=== PATIENT | female | born 1955 | race Caucasian/White ===

== ENCOUNTER 2017-01-16 11:09 | Inpatient (IN) | payer OTHER ==
[~2017-01-16] VITALS: Ht 170.2 cm; Wt 166.7 kg
[2017-01-16 12:35] LABS: EOSINOPHIL (%) 0.6 % (0-5); HEMATOCRIT 42.8 % (36.0-46.0); IMMATURE GRANULOCYTE (%) 0.8 % (0.0-0.7); INSTRUMENT ABS NEUTROPHIL CT 3.1 K/uL; MCH 24.4 PG (29.0-34.0); MCHC 30.6 G/DL (30.0-36.0); MCV 79.7 FL (83-99); MEAN PLAT.VOLUME 10.8 uM^3 (9.5-12.4); MONOCYTE (%) 11.6 % (3-12); MONOCYTE COUNT 0.6 K/uL (0-0.8); NEUTROPHIL (%) 65.7 % (45-76); NEUTROPHIL COUNT 3.1 K/uL (1.8-6.4); PLATELET COUNT 214 K/uL (156-360); RBC DIS.WIDTH-CV 14.8 % (11.8-14.6); RBC DIS.WIDTH-SD 42.5 % (39-53); RED BLOOD COUNT 5.37 M/uL (3.80-5.20); WHITE BLOOD COUNT 4.7 K/uL (4.1-10.2)
[2017-01-16 12:44] LABS: CHLORIDE 100 mEq/L (99-109); INTER. NORMALIZED RATIO 1.2; POTASSIUM 4.3 mEq/L (3.7-5.4); PROTHROMBIN TIME 11.8 (9.2-11.2); PTT 30.3 (25-32); SODIUM 137 mEq/L (136-147)
[2017-01-16 12:45] LABS: MAGNESIUM 1.5 mg/dL (1.3-2.7)
[2017-01-16 12:47] LABS: GLUCOSE 280 mg/dL (70-99)
[2017-01-16 12:48] LABS: ANION GAP 11 MEQ/L (2-14)
[2017-01-16 12:49] LABS: TOTAL BILIRUBIN 0.3 mg/dL (0.0-1.0)
[2017-01-16 12:50] LABS: ALKALINE PHOSPHATASE 59 IU/L (3-129); SERUM ETHYL ALCOHOL < 10 mg/dL
[2017-01-16 12:51] LABS: GFR ESTIMATE (CALCULATED) 49 mL/min/
[2017-01-16 12:52] LABS: UREA NITROGEN (BUN) 19 mg/dL (9-23)
[2017-01-16 12:56] LABS: TROP-I INTERPRETATION NEGATIVE; TROPONIN-I 0.01 ng/mL (0.0-0.30)
[2017-01-16] MEDS ORDERED: LOSARTAN-HCTZ1 EAC1 PO (14:34)
[2017-01-16] MEDS ORDERED: GLUCOPHAGE500 MG PO (14:35)
[2017-01-16] MEDS ORDERED: DAILY VALUE1 EACH PO (14:35)
[2017-01-16 16:45] VITALS: BP 137/80
[2017-01-16 17:03] LABS: POINT-OF-CARE METER ID UU14174216
[2017-01-16 19:00] VITALS: BP 164/64
[2017-01-16 23:00] VITALS: BP 135/75
[2017-01-17] VITALS (8 sets, daily range): BP systolic 114–148; BP diastolic 72–90
[2017-01-17 06:14] LABS: HEMATOCRIT 42.4 % (36.0-46.0); MCH 24.3 PG (29.0-34.0); MCHC 30.7 G/DL (30.0-36.0); MCV 79.1 FL (83-99); MEAN PLAT.VOLUME 11.2 uM^3 (9.5-12.4); PLATELET COUNT 214 K/uL (156-360); RBC DIS.WIDTH-SD 42.8 % (39-53); RED BLOOD COUNT 5.36 M/uL (3.80-5.20); WHITE BLOOD COUNT 4.5 K/uL (4.1-10.2)
[2017-01-17 21:10] LABS: POINT-OF-CARE METER ID UU13113781
[2017-01-18] VITALS (9 sets, daily range): BP systolic 108–145; BP diastolic 55–93
[2017-01-18 11:41] LABS: POINT-OF-CARE METER ID UU14174216
[2017-01-18 16:50] LABS: POINT-OF-CARE METER ID UU14174216
[2017-01-18] MEDS ORDERED: LOPRESSOR50 MG PO (20:28)
[2017-01-18] MEDS ORDERED: ELIQUIS5 MG PO (20:28)
[2017-01-18] MEDS ORDERED: CARDIZEM LA240 MG PO (20:28)
[2017-01-18] MEDS ORDERED: CARDIZEM CD,CA240 MG PO (20:28)
[2017-01-18 21:08] LABS: POINT-OF-CARE METER ID UU14174216
== END 2017-01-18 21:08 | disposition home or self-care (01) | DRG 309 ==
LOC: EME 11:09 → EDOF 14:25 → 4EAST 16:15
PROVIDERS: Emergency Medicine; Internal Medicine
DX: I48.1 Persistent atrial fibrillation (principal); Z68.43 Body mass index [BMI] 50.0-59.9, adult; E66.01 Morbid (severe) obesity due to excess calories; I10 Essential (primary) hypertension; E11.9 Type 2 diabetes mellitus without complications; R94.31 Abnormal electrocardiogram [ECG] [EKG]; Z82.49 Family history of ischemic heart disease and other diseases of the circulatory system
CPT/HCPCS: 71020; 80053; 82948; 83735; 83880; 84484; 85025; 85027; 85379; 85610; 85730; 93005; 99281; 99285; G0480; J1160; J1815; J7040; J7050